=== PATIENT | female | born 1935 ===

== ENCOUNTER 2018-04-05 10:45 | Inpatient (IN) | payer MEDICAID, OTHER ==
--- NOTE | 2018-04-05 11:09 | ED PDOC ---
HPI: CCC, URI, Sore Throat Time Seen by Provider: 04/05/18 10:53 Chief Complaint (Nursing): Cough, Cold, Congestion History Per: Patient Onset/Duration Of Symptoms: Days (2) Current Symptoms Are (Timing): Still Present Location Of Pain: denies: Throat Sick Contacts (Context): None Associated Symptoms: Fever, Cough, Sputum Severity: Mild Additional Complaint(s): Cough productive white sputum x 2 days. Assoc with fever. Denies chest pain or SOB Past Medical History Vital Signs: Last Vital Signs Temp 100.9 F H 04/05/18 11:03 Pulse 107 H 04/05/18 11:03 Resp BP 155/73 H 04/05/18 11:03 Pulse Ox 99 04/05/18 11:09 - Medical History PMH: No Chronic Diseases - Family History Family History: States: Unknown Family Hx - Allergies Allergies/Adverse Reactions: Allergies Allergy/AdvReac Type Severity Reaction Status Date / Time No Known Allergies Allergy Verified 04/05/18 11:02 Review of Systems ROS Statement: Except As Marked, All Systems Reviewed And Found Negative Constitutional: Positive for: Fever Cardiovascular: Negative for: Chest Pain Respiratory: Positive for: Cough, Sputum. Negative for: Shortness of Breath Physical Exam - Reviewed Nursing Documentation Reviewed: Yes Vital Signs Reviewed: Yes - Physical Exam Appears: Positive for: Non-toxic, No Acute Distress Head Exam: Positive for: ATRAUMATIC, NORMAL INSPECTION, NORMOCEPHALIC Skin: Positive for: Normal Color, Warm, DRY Eye Exam: Positive for: EOMI, Normal appearance, PERRL ENT: Positive for: Normal ENT Inspection Neck: Positive for: Normal, Painless ROM Cardiovascular/Chest: Positive for: Regular Rate, Rhythm Respiratory: Positive for: Rhonchi. Negative for: Wheezing, Respiratory Distress Gastrointestinal/Abdominal: Positive for: Normal Exam, Soft Back: Positive for: Normal Inspection Extremity: Positive for: Normal ROM Neurologic/Psych: Positive for: Alert, Oriented - ECG O2 Sat by Pulse Oximetry: 99 Disposition - Clinical Impression Clinical Impression: Pneumonia, Sepsis - Patient ED Disposition Is Patient to be Admitted: Yes - Disposition Disposition Time: 11:50 Condition: FAIR Forms: [email or web address] ([place]oz[place]ican) - Pt Status Changed To: Hospital Disposition Of: Inpatient - Admit Certification Admit to Inpatient:: After my assessment, the patient will require hospitalization for at least two midnights. This is because of the severity of symptoms shown, intensity of services needed, and/or the medical risk in this patient being treated as an outpatient. - POA Present On Arrival: None
[2018-04-05] MEDS ORDERED: Piperacillin/Tazobact 3.375 GM in Sodium Chloride 0.9% 100 ML IVPB STA (11:48)
[2018-04-05] MEDS ORDERED: Vancomycin 1 g Inj ONE (11:52)
[2018-04-05] MEDS ORDERED: Piperacillin/Tazobact 3.375 gm Inj IVPB ONE (11:52)
--- NOTE | 2018-04-05 11:59 | RAD ---
Date of service: 04/05/2018 HISTORY: Cough COMPARISON: No prior. TECHNIQUE: Chest PA and lateral FINDINGS: LUNGS: Left lower lobe infiltrate suspicious for pneumonia. The finding is in the basilar segment retrocardiac area left lower lobe. Increased interstitial markings posterior segment right upper lobe. Etiology, significance is unknown. No comparison studies. PLEURA: No significant pleural effusion identified. No pneumothorax apparent. CARDIOVASCULAR: Normal. OSSEOUS STRUCTURES: No significant abnormalities. VISUALIZED UPPER ABDOMEN: Normal. OTHER FINDINGS: None. IMPRESSION: Left lower lobe infiltrate suspicious for acute pneumonia. Increased markings primarily interstitial right upper lobe. These are peripheral and pleural-based.
[2018-04-05 12:01] LABS: VENOUS BLOOD GAS PCO2 54 mmHg (40-60); VENOUS BLOOD GAS PO2 21 mm/Hg (30-55)
[2018-04-05 12:28] LABS: BASO # 0.1 K/uL (0.0-0.2); BASO % 0.4 % (0.0-2.0); EOS # 0.1 K/uL (0.0-0.7); EOS % 0.6 % (0.0-4.0); HEMOGLOBIN 11.2 g/dL (12.0-16.0); LYMPH # 0.9 K/uL (1.0-4.3); LYMPH % 5.6 % (20.0-40.0); MEAN CELL VOLUME 89.2 fl (81.0-99.0); MEAN CORPUSCULAR HEMOGLOBIN 29.6 pg (27.0-31.0); MEAN CORPUSCULAR HGB CONC 33.2 g/dL (33.0-37.0); MEAN PLATELET VOLUME 7.2 fl (7.2-11.7); MONO # 1.1 K/uL (0.0-0.8); MONO % 6.5 % (0.0-10.0); NEUT # 14.7 K/uL (1.8-7.0); NEUT % 86.9 % (50.0-75.0); PLATELET COUNT 525 K/uL (130-400); RBC 3.77 Mil/uL (3.80-5.20); WHITE BLOOD COUNT 16.9 K/uL (4.8-10.8)
[2018-04-05 12:39] LABS: ALBUMIN 3.8 g/dL (3.5-5.0); ALT/SGPT 80 U/L (9-52); AST/SGOT 65 U/L (14-36); BLOOD UREA NITROGEN 9 mg/dl (7-17); GFR NON-AFRICAN AMERICAN > 60
[2018-04-05] MEDS ORDERED: Albuterol-Ipratrop 3 mg / 0.5 (3 ml) UD IH STA (13:19)
[2018-04-05] MEDS ORDERED: Albuterol-Ipratrop 3 mg / 0.5 (3 ml) UD ONE (13:26)
[2018-04-05 14:07] LABS: HYPOCHROMIC SLIGHT; LYMPHOCYTE 8 % (20-50); MONOCYTE 7 % (0-10); NEUTROPHIL 85 % (42-75); PLATELET ESTIMATE INCREASED (NORMAL); TOTAL CELLS COUNTED 100
[2018-04-05 14:08] LABS: TOXIC GRANULATION PRESENT
[2018-04-05] MEDS ORDERED: Sodium Chloride 3% for Inhalation 4 ML VIAL.NEB IH PRN (14:20)
[2018-04-05] MEDS ORDERED: Albuterol-Ipratrop 3 mg / 0.5 (3 ml) UD INH PRN (14:34)
[2018-04-05] MEDS: Piperacillin/Tazobact 3.375 GM in Sodium Chloride 0.9% 100 ML IVPB SCH (16:21)
--- NOTE | 2018-04-05 22:31 | CARD ---
APPROVED REPORT Date of service: 04/05/2018 <Conclusion> Sinus rhythm Normal ECG
[2018-04-06] MEDS: Piperacillin/Tazobact 3.375 GM in Sodium Chloride 0.9% 100 ML IVPB SCH ×3 (00:18→17:33)
[2018-04-06 06:38] LABS: HEMOGLOBIN 9.9 g/dL (12.0-16.0); MEAN CELL VOLUME 88.5 fl (81.0-99.0); MEAN CORPUSCULAR HEMOGLOBIN 29.9 pg (27.0-31.0); MEAN CORPUSCULAR HGB CONC 33.8 g/dL (33.0-37.0); RBC 3.32 Mil/uL (3.80-5.20); RED CELL DISTRIBUTION WIDTH 13.1 % (11.5-14.5)
[2018-04-06 07:34] LABS: ALB/GLOB RATIO 0.9 (1.0-2.1); ALT/SGPT 67 U/L (9-52); AST/SGOT 47 U/L (14-36); BLOOD UREA NITROGEN 8 mg/dl (7-17); CALCIUM 8.4 mg/dL (8.4-10.2); GFR NON-AFRICAN AMERICAN > 60
[2018-04-06] MEDS ORDERED: Pneumococcal 23-Valent Vaccine IM ONE (09:00)
--- NOTE | 2018-04-06 15:06 | CP.PCM.HP ---
History of Present Illness - History of Present Illness History of Present Illness: Pt is an 83 y/o homeless female with no past medical hx who presented to [facility] ED with complaints of a two day history of productive cough and fevers. Denied any CP, SOB, URI, sick contacts, recent travel, n/v/d, or dysuria. PMD: none 12 point ROS negative PMHX: Denies PSurgHX: Denies Medication: None Social: Homeless, migrated from [place] 20 year ago. Does not have family here. Denies smoking, alcohol, or drug use. ER Course/Interventions: -Cxray + Left Lower lobe infiltrates -Sepsis: Febrile, Tachycardic, Leukocytosis 16.9 -S/P Vancomycin and Zosyn in ED Admitted for Pneumonia Present on Admission - Present on Admission Any Indicators Present on Admission: No History of DVT/PE: No History of Uncontrolled Diabetes: No Urinary Catheter: No Decubitus Ulcer Present: No Review of Systems - Constitutional Constitutional: absent: Chills, Weakness - Cardiovascular Cardiovascular: absent: Chest Pain - Respiratory Respiratory: absent: Dyspnea Past Patient History - Past Medical History & Family History Past Medical History?: No - Past Social History Smoking Status: Never Smoked - CARDIAC Hx Cardiac Disorders: No - PULMONARY Hx Respiratory Disorders: No - NEUROLOGICAL Hx Neurological Disorder: No - HEENT Hx HEENT Problems: No - RENAL Hx Chronic Kidney Disease: No - ENDOCRINE/METABOLIC Hx Endocrine Disorders: No - HEMATOLOGICAL/ONCOLOGICAL Hx Blood Disorders: No - INTEGUMENTARY Hx Dermatological Problems: No - MUSCULOSKELETAL/RHEUMATOLOGICAL Hx Falls: No - GENITOURINARY/GYNECOLOGICAL Hx Genitourinary Disorders: No - PSYCHIATRIC Hx Substance Use: No - SURGICAL HISTORY Hx Surgeries: No - ANESTHESIA Hx Anesthesia: No Meds Allergies/Adverse Reactions: Allergies Allergy/AdvReac Type Severity Reaction Status Date / Time No Known Allergies Allergy Verified 04/05/18 11:02 Physical Exam - Constitutional Appears: Non-toxic - Head Exam Head Exam: ATRAUMATIC, NORMAL INSPECTION - Eye Exam Eye Exam: Normal appearance, PERRL - ENT Exam ENT Exam: Mucous Membranes Moist - Neck Exam Neck exam: Positive for: Full Rom. Negative for: Lymphadenopathy - Respiratory Exam Respiratory Exam: Rales (Left lower and mid lobe rales). absent: Accessory Muscle Use, Chest Wall Tenderness, Rhonchi, Wheezes, Stridor - Cardiovascular Exam Cardiovascular Exam: REGULAR RHYTHM, +S1, +S2. absent: Systolic Murmur - GI/Abdominal Exam GI & Abdominal Exam: Normal Bowel Sounds, Soft. absent: Tenderness - Neurological Exam Neurological exam: Alert, Oriented x3 - Psychiatric Exam Psychiatric exam: Normal Affect - Skin Skin Exam: Normal Color Results - Vital Signs Recent Vital Signs: Last Vital Signs Temp 98.6 F 04/06/18 09:08 Pulse 85 04/06/18 09:08 Resp 20 04/06/18 09:08 BP 146/72 04/06/18 09:08 Pulse Ox 94 L 04/06/18 09:08 - Labs Result Diagrams: 04/06/18 06:00 04/06/18 06:00 Labs: Laboratory Results - last 24 hr 04/06/18 04/06/18 06:00 06:00 WBC 8.0 D RBC 3.32 L Hgb 9.9 L Hct 29.3 L MCV 88.5 MCH 29.9 MCHC 33.8 RDW 13.1 Plt Count 498 H Sodium 136 Potassium 3.8 Chloride 99 Carbon Dioxide 31 H Anion Gap 10 BUN 8 Creatinine 0.7 Est GFR ( Amer) > 60 Est GFR (Non-Af Amer) > 60 Random Glucose 114 H Calcium 8.4 Phosphorus 3.4 Magnesium 2.2 Total Bilirubin 0.2 AST 47 H D ALT 67 H Alkaline Phosphatase 83 Total Protein 6.2 L Albumin 3.0 L D Globulin 3.2 Albumin/Globulin Ratio 0.9 L Assessment & Plan (1) Pneumonia Status: Acute (2) Sepsis Status: Resolved - Assessment and Plan (Free Text) Assessment: Pt is an 83 y/o homeless female w/ no past medical hx admitted for Sepsis secondary to Pneumonia. #Sepsis: Resolved. Afebrile, No leukocytosis. Discontinue Tele. #Pneumonia, Acute, Improving, C/w Vanco & Zosyn. Duonebs q6. f/u Sputum and Blood Cx. #Homeless, Social Work referral Discussed case with Dr. Laura Cooper, PGY2
[2018-04-07] MEDS: Piperacillin/Tazobact 3.375 GM in Sodium Chloride 0.9% 100 ML IVPB SCH ×3 (00:07→16:17)
[2018-04-07 09:09] LABS: HEMOGLOBIN 11.3 g/dL (12.0-16.0); MEAN CORPUSCULAR HEMOGLOBIN 29.9 pg (27.0-31.0); MEAN CORPUSCULAR HGB CONC 33.9 g/dL (33.0-37.0); RBC 3.78 Mil/uL (3.80-5.20); WHITE BLOOD COUNT 7.2 K/uL (4.8-10.8)
--- NOTE | 2018-04-07 10:25 | RAD ---
HISTORY: Follow-up for pneumonia COMPARISON: 04/05/2018. TECHNIQUE: Chest PA and lateral FINDINGS: LINES AND TUBES: None. LUNG AND PLEURA: The lungs are well inflated. There are fibrotic changes in the right upper lobe. There is redemonstration of left lower lobe airspace disease. No pleural effusion or pneumothorax. HEART AND MEDIASTINUM: The heart is not enlarged. The hilar and mediastinal contours are within normal limits. SKELETAL STRUCTURES: The bony structures are within normal limits for the patient's age. VISUALIZED UPPER ABDOMEN: Normal. OTHER FINDINGS: None. IMPRESSION: Little interval change in left lower lobe pneumonia. Follow-up to resolution is advised.
[2018-04-07] MEDS: Enoxaparin 40 mg Syringe SC SCH (12:42)
[2018-04-07] MEDS: guaiFENesin DM 100 mg-10 mg/5 ml UD PO PRN ×2 (12:42→23:39)
[2018-04-07] MEDS: Albuterol-Ipratrop 3 mg / 0.5 (3 ml) UD INH SCH ×2 (13:03→19:23)
--- NOTE | 2018-04-07 15:25 | CP.PCM.PN ---
Subjective - Date & Time of Evaluation Date of Evaluation: 04/07/18 Time of Evaluation: 08:00 - Subjective Subjective: No acute overnight events. Still has productive cough but improved since yesterday. Denies SOB, CP, fever, chills. Objective - Vital Signs/Intake and Output Vital Signs (last 24 hours): Temp Pulse Resp BP Pulse Ox 98 F 75 18 146/72 95 04/07/18 08:40 04/07/18 13:03 04/07/18 08:40 04/07/18 08:40 04/07/18 08:40 - Medications Medications: Current Medications Albuterol/Ipratropium (Duoneb 3 Mg/0.5 Mg (3 Ml) Ud) 3 ml INH RQ6 [facility] Last Admin: 04/07/18 13:03 Dose: 3 ml Enoxaparin Sodium (Lovenox) 40 mg SC DAILY [facility] PRN Reason: Protocol Last Admin: 04/07/18 12:42 Dose: 40 mg Guaifenesin/Dextromethorphan (Robitussin Dm) 5 ml PO Q4 PRN PRN Reason: Cough Last Admin: 04/07/18 12:42 Dose: 5 ml Hydrocortisone (Cortizone 1% Cream) 1 applic TOP BID [facility] Last Admin: 04/07/18 11:01 Dose: 1 applic Vancomycin HCl 1 gm/ Sodium (Chloride) 250 mls @ 166.667 mls/hr IVPB Q12 [facility] PRN Reason: Protocol Last Admin: 04/07/18 10:58 Dose: 166.667 mls/hr Piperacillin Sod/Tazobactam (Sod 3.375 gm/ Sodium Chloride) 100 mls @ 100 mls/ hr IVPB Q8 [facility] PRN Reason: Protocol Last Admin: 04/07/18 09:27 Dose: 100 mls/hr - Labs Labs: 04/07/18 09:01 04/06/18 06:00 - Constitutional Appears: Well, Non-toxic - Head Exam Head Exam: ATRAUMATIC - Eye Exam Eye Exam: Normal appearance - ENT Exam ENT Exam: Mucous Membranes Moist - Neck Exam Neck Exam: Full ROM - Respiratory Exam Respiratory Exam: Rales (Left lower and mid lobe). absent: Accessory Muscle Use , Wheezes - Cardiovascular Exam Cardiovascular Exam: REGULAR RHYTHM, +S1, +S2. absent: Murmur - GI/Abdominal Exam GI & Abdominal Exam: Soft, Normal Bowel Sounds. absent: Tenderness - Extremities Exam Extremities Exam: absent: Pedal Edema - Neurological Exam Neurological Exam: Alert, Normal Gait - Psychiatric Exam Psychiatric exam: Normal Affect, Normal Mood - Skin Skin Exam: Normal Color Assessment and Plan (1) Pneumonia Status: Acute (2) Sepsis Status: Resolved - Assessment and Plan (Free Text) Assessment: Pt is an 83 y/o homeless female with no past medical hx who presented to [facility] ED with complaints of a two day history of productive cough and fevers and admitted for pneumonia. Improving respiratory status. Will repeat Cxray tomorrow am. Started Tessalon Perles for cough. C/W current management. Discussed case with Dr. Laura Cooper, PGY1
[2018-04-08] MEDS: Piperacillin/Tazobact 3.375 GM in Sodium Chloride 0.9% 100 ML IVPB SCH ×2 (01:00→08:52)
[2018-04-08] MEDS: Albuterol-Ipratrop 3 mg / 0.5 (3 ml) UD INH SCH ×4 (01:05→19:12)
[2018-04-08] MEDS: guaiFENesin DM 100 mg-10 mg/5 ml UD PO PRN ×3 (08:50→17:27)
[2018-04-08] MEDS: Enoxaparin 40 mg Syringe SC SCH (08:53)
--- NOTE | 2018-04-08 13:18 | CP.PCM.CON ---
History of Present Illness - History of Present Illness History of Present Illness: 83 year old female with no past medical history, presenting with progressive fatigue and cough, found to have pneumonia, currently on antibiotics, found to have thrombocytosis. The patient denies blood problems in the past but does not see a doctor regularly. Past medical history: None Past surgical history: None Family history: Denies hematologic and oncologic problems Social history: Denies tobacco, alcohol, and illicit drug use. Allergies: NKA Review of systems: All remaining review of systems including HEENT, cardiovascular, respiratory, gastrointestinal, genitourinary, musculoskeletal, dermatologic, neurologic, and psychiatric are negative unless mentioned in the HPI. Past Patient History - Past Medical History & Family History Past Medical History?: No - Past Social History Smoking Status: Never Smoked - CARDIAC Hx Cardiac Disorders: No - PULMONARY Hx Respiratory Disorders: No - NEUROLOGICAL Hx Neurological Disorder: No - HEENT Hx HEENT Problems: No - RENAL Hx Chronic Kidney Disease: No - ENDOCRINE/METABOLIC Hx Endocrine Disorders: No - HEMATOLOGICAL/ONCOLOGICAL Hx Blood Disorders: No - INTEGUMENTARY Hx Dermatological Problems: No - MUSCULOSKELETAL/RHEUMATOLOGICAL Hx Falls: No - GENITOURINARY/GYNECOLOGICAL Hx Genitourinary Disorders: No - PSYCHIATRIC Hx Substance Use: No - SURGICAL HISTORY Hx Surgeries: No - ANESTHESIA Hx Anesthesia: No Meds Allergies/Adverse Reactions: Allergies Allergy/AdvReac Type Severity Reaction Status Date / Time No Known Allergies Allergy Verified 04/05/18 11:02 - Medications Medications: Current Medications Albuterol/Ipratropium (Duoneb 3 Mg/0.5 Mg (3 Ml) Ud) 3 ml INH RQ6 [facility] Last Admin: 04/08/18 07:43 Dose: 3 ml Enoxaparin Sodium (Lovenox) 40 mg SC DAILY [facility] PRN Reason: Protocol Last Admin: 04/08/18 08:53 Dose: 40 mg Guaifenesin/Dextromethorphan (Robitussin Dm) 5 ml PO Q4 PRN PRN Reason: Cough Last Admin: 04/08/18 08:50 Dose: 5 ml Hydrocortisone (Cortizone 1% Cream) 1 applic TOP BID [facility] Last Admin: 04/07/18 16:18 Dose: 1 applic Levofloxacin (Levaquin) 750 mg PO DAILY [facility] PRN Reason: Protocol Physical Exam - Head Exam Head Exam: ATRAUMATIC - Eye Exam Eye Exam: Normal appearance - ENT Exam ENT Exam: Mucous Membranes Dry - Respiratory Exam Respiratory Exam: NORMAL BREATHING PATTERN - Cardiovascular Exam Cardiovascular Exam: +S1, +S2 - GI/Abdominal Exam GI & Abdominal Exam: Normal Bowel Sounds - Extremities Exam Extremities exam: Positive for: normal inspection - Psychiatric Exam Psychiatric exam: Normal Affect, Normal Mood - Skin Skin Exam: Warm Results - Vital Signs Recent Vital Signs: Last Vital Signs Temp 97.6 F 04/08/18 08:00 Pulse 84 04/08/18 08:00 Resp 20 04/08/18 08:00 BP 133/75 04/08/18 08:00 Pulse Ox 97 04/08/18 08:00 - Labs Result Diagrams: 04/07/18 09:01 04/06/18 06:00 Assessment & Plan (1) Thrombocytosis Assessment and Plan: likely reactive to pneumonia outpatient repeat CBC once clear of infection Status: Acute (2) Anemia Assessment and Plan: will check retic count, b12, folate, ferritin to further characterize Thank you for this interesting consult. Status: Acute
--- NOTE | 2018-04-08 16:11 | CP.PCM.PN ---
Subjective - Date & Time of Evaluation Date of Evaluation: 04/08/18 Time of Evaluation: 08:00 - Subjective Subjective: No acute overnight events. Pt seen and examined with Dr. Gilbert. States breathing is better. Still complains of wet cough. Objective - Vital Signs/Intake and Output Vital Signs (last 24 hours): Temp Pulse Resp BP Pulse Ox 97.6 F 84 20 133/75 97 04/08/18 08:00 04/08/18 08:00 04/08/18 08:00 04/08/18 08:00 04/08/18 08:00 - Medications Medications: Current Medications Albuterol/Ipratropium (Duoneb 3 Mg/0.5 Mg (3 Ml) Ud) 3 ml INH RQ6 [facility] Last Admin: 04/08/18 14:19 Dose: 3 ml Enoxaparin Sodium (Lovenox) 40 mg SC DAILY [facility] PRN Reason: Protocol Last Admin: 04/08/18 08:53 Dose: 40 mg Guaifenesin/Dextromethorphan (Robitussin Dm) 5 ml PO Q4 PRN PRN Reason: Cough Last Admin: 04/08/18 14:00 Dose: 5 ml Hydrocortisone (Cortizone 1% Cream) 1 applic TOP BID [facility] Last Admin: 04/08/18 13:40 Dose: 1 applic Levofloxacin (Levaquin) 750 mg PO DAILY [facility] PRN Reason: Protocol - Labs Labs: 04/07/18 09:01 04/06/18 06:00 - Constitutional Appears: Well, No Acute Distress - Head Exam Head Exam: NORMAL INSPECTION - Eye Exam Eye Exam: Normal appearance - ENT Exam ENT Exam: Mucous Membranes Moist - Respiratory Exam Respiratory Exam: Rales (Mild left mid lobe, imrpoved), Rhonchi, NORMAL BREATHING PATTERN - Cardiovascular Exam Cardiovascular Exam: REGULAR RHYTHM - GI/Abdominal Exam GI & Abdominal Exam: Soft. absent: Tenderness - Extremities Exam Extremities Exam: absent: Pedal Edema - Neurological Exam Neurological Exam: Alert, Oriented x3 - Psychiatric Exam Psychiatric exam: Normal Affect - Skin Skin Exam: Normal Color Assessment and Plan (1) Pneumonia Status: Acute (2) Sepsis Status: Resolved - Assessment and Plan (Free Text) Assessment: Pt is an 83 y/o homeless female with no past medical hx who presented to [facility] ED with complaints of a two day history of productive cough and fevers and admitted for pneumonia. -Improving respiratory status but no improvement in chest xray -Discontinue Vancomycin and Zosyn -Started Levoquin 750mg po -C/W current management. +Mucolytics -Repeat Cxray in the am -Hematology consulted for thrombocystosis, Dr. Bacon Discussed case with Dr. Vladimir Cooper, PGY2
[2018-04-08] MEDS: levoFLOXacin 750 MG TAB PO SCH (18:05)
[2018-04-09] MEDS: Albuterol-Ipratrop 3 mg / 0.5 (3 ml) UD INH SCH ×3 (02:06→13:20)
[2018-04-09] MEDS: guaiFENesin DM 100 mg-10 mg/5 ml UD PO PRN ×3 (09:12→16:15)
[2018-04-09] MEDS: Enoxaparin 40 mg Syringe SC SCH (09:12)
[2018-04-09] MEDS: levoFLOXacin 750 MG TAB PO SCH (09:13)
--- NOTE | 2018-04-09 11:41 | RAD ---
Date of service: 04/09/2018 HISTORY: pneumonia COMPARISON: 04/07/2018. FINDINGS: LUNGS: Interval improvement with respect to left lower lobe infiltrate. Stable right apical findings. PLEURA: No significant pleural effusion identified, no pneumothorax apparent. CARDIOVASCULAR: Normal. OSSEOUS STRUCTURES: No significant abnormalities. VISUALIZED UPPER ABDOMEN: Normal. OTHER FINDINGS: None. IMPRESSION: Improvement in left lower lobe infiltrate without complete resolution. Stable changes right apex likely chronic.
[2018-04-09 13:08] LABS: BASO # 0.1 K/uL (0.0-0.2); BASO % 0.9 % (0.0-2.0); HEMOGLOBIN 10.6 g/dL (12.0-16.0); LYMPH # 0.9 K/uL (1.0-4.3); LYMPH % 13.9 % (20.0-40.0); MEAN CELL VOLUME 89.2 fl (81.0-99.0); MEAN CORPUSCULAR HEMOGLOBIN 29.5 pg (27.0-31.0); MEAN PLATELET VOLUME 6.3 fl (7.2-11.7); MONO # 0.7 K/uL (0.0-0.8); MONO % 11.3 % (0.0-10.0); NEUT # 4.8 K/uL (1.8-7.0); NEUT % 73.9 % (50.0-75.0); NRBC % 0.1 % (0.0-0.0); RBC 3.61 Mil/uL (3.80-5.20); RED CELL DISTRIBUTION WIDTH 13.7 % (11.5-14.5); WHITE BLOOD COUNT 6.5 K/uL (4.8-10.8)
[2018-04-09 13:46] LABS: BLOOD UREA NITROGEN 14 mg/dl (7-17); GFR NON-AFRICAN AMERICAN > 60
[2018-04-09 16:12] VITALS: BP 126/66; PULSE 100; RESP 20; TEMP 97.9; O2SAT 97
--- NOTE | 2018-04-09 17:27 | CP.PCM.DIS ---
Provider - Provider Date of Admission: 04/05/18 11:51 Attending physician: Junior Sanchez MD Time Spent in preparation of Discharge (in minutes): 35 Diagnosis - Discharge Diagnosis (1) Pneumonia Status: Resolved (2) Sepsis Status: Resolved Hospital Course - Lab Results Lab Results: Micro Results 04/05/18 12:28 Blood Blood Culture - Preliminary NO GROWTH AFTER 4 DAYS 04/05/18 12:19 Blood Blood Culture - Preliminary NO GROWTH AFTER 4 DAYS 04/05/18 00:15 Sputum Gram Stain - Final 04/05/18 00:15 Sputum Sputum Culture - Final NORMAL ORAL MARTY Most Recent Lab Values WBC 6.5 K/uL (4.8-10.8) 04/09/18 13:00 RBC 3.61 Mil/uL (3.80-5.20) L 04/09/18 13:00 Hgb 10.6 g/dL (12.0-16.0) L 04/09/18 13:00 Hct 32.2 % (34.0-47.0) L 04/09/18 13:00 MCV 89.2 fl (81.0-99.0) 04/09/18 13:00 MCH 29.5 pg (27.0-31.0) 04/09/18 13:00 MCHC 33.0 g/dL (33.0-37.0) 04/09/18 13:00 RDW 13.7 % (11.5-14.5) 04/09/18 13:00 Plt Count 572 K/uL (130-400) H 04/09/18 13:00 MPV 6.3 fl (7.2-11.7) L 04/09/18 13:00 Neut % (Auto) 73.9 % (50.0-75.0) 04/09/18 13:00 Lymph % (Auto) 13.9 % (20.0-40.0) L 04/09/18 13:00 [place] % (Auto) 11.3 % (0.0-10.0) H 04/09/18 13:00 Eos % (Auto) 0.0 % (0.0-4.0) 04/09/18 13:00 Baso % (Auto) 0.9 % (0.0-2.0) 04/09/18 13:00 Neut # (Auto) 4.8 K/uL (1.8-7.0) 04/09/18 13:00 Lymph # (Auto) 0.9 K/uL (1.0-4.3) L 04/09/18 13:00 [place] # (Auto) 0.7 K/uL (0.0-0.8) 04/09/18 13:00 Eos # (Auto) 0.0 K/uL (0.0-0.7) 04/09/18 13:00 Baso # (Auto) 0.1 K/uL (0.0-0.2) 04/09/18 13:00 Neutrophils % (Manual) 85 % (42-75) H 04/05/18 12:19 Lymphocytes % (Manual) 8 % (20-50) L 04/05/18 12:19 Monocytes % (Manual) 7 % (0-10) 04/05/18 12:19 Toxic Granulation Present 04/05/18 12:19 Platelet Estimate Increased (NORMAL) H 04/05/18 12:19 Hypochromasia (manual) Slight 04/05/18 12:19 Retic Count 1.2 % (0.5-1.5) 04/09/18 13:00 pO2 21 mm/Hg (30-55) L 04/05/18 11:57 VBG pH 7.40 (7.32-7.43) 04/05/18 11:57 VBG pCO2 54 mmHg (40-60) 04/05/18 11:57 VBG HCO3 28.7 mmol/L 04/05/18 11:57 VBG Total CO2 35.1 mmol/L (22-28) H 04/05/18 11:57 VBG O2 Sat (Calc) 33.5 % (40-65) L 04/05/18 11:57 VBG Base Excess 7.0 mmol/L (0.0-2.0) H 04/05/18 11:57 VBG Potassium 4.3 mmol/L (3.6-5.2) 04/05/18 11:57 Sodium 134.0 mmol/L (132-148) 04/05/18 11:57 Chloride 98.0 mmol/L (98-107) 04/05/18 11:57 Glucose 121 mg/dL (65-105) H 04/05/18 11:57 Lactate 1.2 mmol/L (0.7-2.1) 04/05/18 11:57 FiO2 21.0 % 04/05/18 11:57 Sodium 134 mmol/l (132-148) 04/09/18 13:00 Potassium 4.5 MMOL/L (3.6-5.0) 04/09/18 13:00 Chloride 97 mmol/L (98-107) L 04/09/18 13:00 Carbon Dioxide 29 mmol/L (22-30) 04/09/18 13:00 Anion Gap 13 (10-20) 04/09/18 13:00 BUN 14 mg/dl (7-17) 04/09/18 13:00 Creatinine 0.7 mg/dl (0.7-1.2) 04/09/18 13:00 Est GFR ( Amer) > 60 04/09/18 13:00 Est GFR (Non-Af Amer) > 60 04/09/18 13:00 Random Glucose 101 mg/dL (65-105) 04/09/18 13:00 Calcium 9.0 mg/dL (8.4-10.2) 04/09/18 13:00 Phosphorus 3.4 mg/dl (2.5-4.5) 04/06/18 06:00 Magnesium 2.2 MG/DL (1.6-2.3) 04/06/18 06:00 Ferritin 180.0 ng/Ml (11.1-264.0) 04/09/18 13:00 Total Bilirubin 0.2 mg/dl (0.2-1.3) 04/06/18 06:00 AST 47 U/L (14-36) H D 04/06/18 06:00 ALT 67 U/L (9-52) H 04/06/18 06:00 Alkaline Phosphatase 83 U/L (38-126) 04/06/18 06:00 Total Protein 6.2 G/DL (6.3-8.2) L 04/06/18 06:00 Albumin 3.0 g/dL (3.5-5.0) L D 04/06/18 06:00 Globulin 3.2 gm/dL (2.2-3.9) 04/06/18 06:00 Albumin/Globulin Ratio 0.9 (1.0-2.1) L 04/06/18 06:00 Vitamin B12 691 pg/mL (239-931) 04/09/18 13:00 Venous Blood Potassium 4.3 mmol/L (3.6-5.2) 04/05/18 11:57 - Hospital Course Hospital Course: Pt is an 83 y/o homeless female with no past medical hx who presented to [facility] ED with complaints of a two day history of productive cough and fevers and admitted for community acquired pneumonia. Pt was treated with Vancomycin and Zosyn for 3 days then treated with Levofloxacin for 2 days. Pt's symptoms improved significantly and she was stable for discharge. During her stay, she was noted to have thrombocytosis and was evaluated by Phone Operator, Dr. Bacon, who stated it was likely reaction to her acute illness. Discharge Medications: Levofloxacin 5 days (total 7 days) Discussed case with Dr. Vladimir Cooper, PGY2 Discharge Exam - Head Exam Head Exam: ATRAUMATIC, NORMAL INSPECTION - Eye Exam Eye Exam: Normal appearance - ENT Exam ENT Exam: Mucous Membranes Moist - Neck Exam Neck exam: Full Rom - Respiratory Exam Respiratory Exam: Clear to PA & Lateral, NORMAL BREATHING PATTERN. absent: Rales, Wheezes - Cardiovascular Exam Cardiovascular Exam: REGULAR RHYTHM, +S1, +S2. absent: Systolic Murmur - GI/Abdominal Exam GI & Abdominal Exam: Normal Bowel Sounds - Extremities Exam Extremities exam: normal inspection - Neurological Exam Neurological exam: Oriented x3 - Psychiatric Exam Psychiatric exam: Normal Affect, Normal Mood - Skin Skin Exam: Normal Color Discharge Plan - Discharge Medications Prescriptions: levoFLOXacin [Levaquin] 750 mg PO DAILY #7 tab - Follow Up Plan Condition: FAIR Disposition: HOME/ ROUTINE Instructions: Pneumonia, Adult (DC) Additional Instructions: appointment for thursdayapr 14 at 11am at [facility] in [place], please arrive 1/2 hour earlier to be registered. Referrals: [facility] [place] [Outside] Junior Sanchez MD [Staff Provider] -
--- NOTE | 2018-04-10 17:12 | CP.PCM.PN ---
Subjective - Date & Time of Evaluation Date of Evaluation: 04/09/18 Time of Evaluation: 10:00 - Subjective Subjective: Feeling better. Objective - Vital Signs/Intake and Output Vital Signs (last 24 hours): Temp Pulse Resp BP Pulse Ox 97.9 F 100 H 20 126/66 97 04/09/18 16:12 04/09/18 16:12 04/09/18 16:12 04/09/18 16:12 04/09/18 16:12 - Labs Labs: 04/09/18 13:00 04/09/18 13:00 - Head Exam Head Exam: ATRAUMATIC - Eye Exam Eye Exam: Normal appearance - ENT Exam ENT Exam: Mucous Membranes Dry - Respiratory Exam Respiratory Exam: NORMAL BREATHING PATTERN - Cardiovascular Exam Cardiovascular Exam: +S1, +S2 - GI/Abdominal Exam GI & Abdominal Exam: Normal Bowel Sounds Assessment and Plan (1) Thrombocytosis Assessment & Plan: likely reactive to infection repeat CBC once clear of infection Status: Acute (2) Anemia Assessment & Plan: anemia of chronic disease Status: Acute
== END 2018-04-09 17:58 | disposition home or self-care (01) | DRG 871 ==
LOC: H.ER 10:45 → H.ERHOLD 11:51 → H.TEL 13:51 → H.MEDSURG1 04-06 23:00
PROVIDERS: ADMIT Family Medicine; ATTEND Family Medicine
DX: A41.9 Sepsis, unspecified organism (principal); J18.9 Pneumonia, unspecified organism; Z59.0 Homelessness; D63.8 Anemia in other chronic diseases classified elsewhere; D47.3 Essential (hemorrhagic) thrombocythemia

== ENCOUNTER 2018-06-10 15:19 | Observation (INO) | payer OTHER, SELFPAY ==
--- NOTE | 2018-06-10 15:54 | ED PDOC ---
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 Awoke this morning with pain, swelling and redness to R side of face tracking back to ear and neck. Denies fever, c/o headache, mild neck pain, facial pain and pain around R eye. Denies LOC, focal weakness, vomiting or back pain. Takes no medications. PMD: denies (per records has seen [facility]) Past Medical History Reviewed: Historical Data, Nursing Documentation, Vital Signs Vital Signs: Last Vital Signs Temp 99.2 F 06/10/18 15:22 Pulse 117 H 06/10/18 15:22 Resp 18 06/10/18 15:22 BP 154/65 H 06/10/18 15:22 Pulse Ox 99 06/10/18 15:22 - Medical History PMH: No Chronic Diseases Denies: Chronic Kidney Disease - Surgical History Surgical History: Appendectomy - Family History Family History: States: Unknown Family Hx - Home Medications Home Medications: Ambulatory Orders Medication Instructions Recorded levoFLOXacin [Levaquin] 750 mg PO DAILY #7 tab 04/09/18 - Allergies Allergies/Adverse Reactions: Allergies Allergy/AdvReac Type Severity Reaction Status Date / Time No Known Allergies Allergy Verified 06/10/18 15:21 - Laboratory Results Result Diagrams: 06/10/18 15:50 06/10/18 15:50 - ECG O2 Sat by Pulse Oximetry: 99 Medical Decision Making Medical Decision Making: workup for fall with erythema/swelling of face initiated r/o traumatic or infectious etiology. Pt states swelling and redness started this morning, after the fall. labs obtained revealing elev WBC approx 15 HR elevated >100, meets SIRS criteria Lactate obtained <2.0 CT brain/Facial/CSpine ordered and results reviewed, no fracture/bleed but +subcutaneous edema R face Zosyn initiated for likely facial cellulitis, meets sepsis but not severe sepsis criteria Admit obs med surg for IV Abx. Patient is elderly, lives in fdc but unclear if can gain access tonight, and high risk poor outcome with facial cellulitis, age, inability to obtain appropriate Abx with poor insight and homeless with temperature <35d F currently outside. Disposition - Disposition
[2018-06-10 16:19] LABS: BASO % 0.3 % (0.0-2.0); EOS % 0.1 % (0.0-4.0); HEMOGLOBIN 12.8 g/dL (12.0-16.0); LYMPH # 0.9 K/uL (1.0-4.3); LYMPH % 6.1 % (20.0-40.0); MEAN CELL VOLUME 90.7 fl (81.0-99.0); MEAN CORPUSCULAR HEMOGLOBIN 29.1 pg (27.0-31.0); MEAN CORPUSCULAR HGB CONC 32.1 g/dL (33.0-37.0); MEAN PLATELET VOLUME 8.1 fl (7.2-11.7); MONO # 0.9 K/uL (0.0-0.8); MONO % 6.3 % (0.0-10.0); NEUT # 12.7 K/uL (1.8-7.0); NEUT % 87.2 % (50.0-75.0); PLATELET COUNT 261 K/uL (130-400); RED CELL DISTRIBUTION WIDTH 14.4 % (11.5-14.5); WHITE BLOOD COUNT 14.5 K/uL (4.8-10.8)
[2018-06-10 16:39] LABS: ALB/GLOB RATIO 1.4 (1.0-2.1); ALBUMIN 4.6 g/dL (3.5-5.0); ALT/SGPT 39 U/L (9-52); AST/SGOT 29 U/L (14-36); BLOOD UREA NITROGEN 15 mg/dl (7-17); CALCIUM 9.4 mg/dL (8.4-10.2); GFR NON-AFRICAN AMERICAN > 60
[2018-06-10] MEDS ORDERED: Sodium Chloride 0.9% 1,000 ML IV STA (17:17)
--- NOTE | 2018-06-10 17:17 | CT ---
Date of service: 06/10/2018 PROCEDURE: CT HEAD WITHOUT CONTRAST. HISTORY: r/o ICH COMPARISON: None available. TECHNIQUE: Axial computed tomography images were obtained through the head/brain without intravenous contrast. Radiation dose: Total exam DLP = 751.98 mGy-cm. This CT exam was performed using one or more of the following dose reduction techniques: Automated exposure control, adjustment of the mA and/or kV according to patient size, and/or use of iterative reconstruction technique. FINDINGS: HEMORRHAGE: No intracranial hemorrhage. BRAIN: No mass effect or edema. No atrophy or chronic microvascular ischemic changes. VENTRICLES: Unremarkable. No hydrocephalus. CALVARIUM: Unremarkable. PARANASAL SINUSES: Unremarkable as visualized. No significant inflammatory changes. MASTOID AIR CELLS: Unremarkable as visualized. No inflammatory changes. OTHER FINDINGS: None. IMPRESSION: No acute intracranial findings
--- NOTE | 2018-06-10 17:19 | CT ---
Date of service: 06/10/2018 PROCEDURE: CT MAXILLOFACIAL BONES WITHOUT CONTRAST HISTORY: R facial swelling, fall COMPARISON: None available. TECHNIQUE: Contiguous axial CT images of the maxillofacial bones were obtained. Coronal and sagittal reformats were generated. Radiation dose: Total exam DLP = 1039.55 mGy-cm. This CT exam was performed using one or more of the following dose reduction techniques: Automated exposure control, adjustment of the mA and/or kV according to patient size, and/or use of iterative reconstruction technique. FINDINGS: NASAL BONES: Unremarkable. ORBITS: Unremarkable. PARANASAL SINUSES/ MASTOIDS: Clear. MAXILLA: Unremarkable. MANDIBLE/ TEMPOROMANDIBULAR JOINTS: Unremarkable. SKULL BASE: Unremarkable. TEMPORAL BONES: Middle ears and mastoid grossly unremarkable. OTHER FINDINGS: There is subcutaneous edema over the right side of the face. No associated fracture IMPRESSION: No evidence of fracture
--- NOTE | 2018-06-10 17:20 | CT ---
Date of service: 06/10/2018 PROCEDURE: CT Cervical Spine without contrast HISTORY: trauma r/o fx COMPARISON: None available. TECHNIQUE: Axial computed tomography images were obtained of the cervical spine without the use of intravenous contrast. Coronal and sagittal reformatted images were created and reviewed. Radiation dose: Total exam DLP = 274.18 mGy-cm. This CT exam was performed using one or more of the following dose reduction techniques: Automated exposure control, adjustment of the mA and/or kV according to patient size, and/or use of iterative reconstruction technique. FINDINGS: VERTEBRAE: No fracture. Normal alignment. No destructive bony lesion. DISCS/SPINAL CANAL/NEURAL FORAMINA: No significant central canal or neural foraminal stenosis. Discs heights are grossly preserved. PARASPINAL SOFT TISSUES: Unremarkable. OTHER FINDINGS: None. IMPRESSION: Unremarkable CT of the cervical spine.
[2018-06-10 17:54] LABS: VENOUS BLOOD GAS BASE EXCESS 3.8 mmol/L (0.0-2.0); VENOUS BLOOD GAS PCO2 56 mmHg (40-60); VENOUS BLOOD GAS PO2 13 mm/Hg (30-55); VENOUS BLOOD PH 7.35 (7.32-7.43)
[2018-06-10] MEDS ORDERED: Piperacillin/Tazobact 4.5 GM in Sodium Chloride 0.9% 100 ML IVPB STA (17:55)
--- NOTE | 2018-06-10 18:35 | CP.PCM.HP ---
<Belinda Dey - Last Filed: 06/10/18 19:20> History of Present Illness - History of Present Illness History of Present Illness: CC: pain in face HPI: 83 YO Female with no sig PMHx presents to [facility] ED for face pain. Pt states that last night she hot her face into a door, and had some pain in her face. She did not suffer any falls, or superficial cuts. This morning pt experienced significant pain in her face, and saw in the mirror that her face had redness and swelling all over the R cheeks. Denies fever, chills, night sweats, chest pain, dyspnea, palpitations, n/v/d/c. Of note, pt was recently admitted to the hospital for pneumonia in 03/2018. [place] used for translation [id number] PMD: none PMHX: Denies PSurgHX: appendectomy when pt was 16 yrs old SHx: lives in [facility], no family in the [place] (from [place]) denies ETOH, smoking and illicit drug use Medication: None Allergies: NKDA Present on Admission - Present on Admission Any Indicators Present on Admission: No Review of Systems - Constitutional Constitutional: absent: Chills, Fever, Headache - EENT Eyes: absent: Change in Vision, Pain Ears: absent: Ear Pain - Cardiovascular Cardiovascular: absent: Chest Pain, Dyspnea, Palpitations - Respiratory Respiratory: absent: Cough, Dyspnea - Gastrointestinal Gastrointestinal: absent: Abdominal Pain, Nausea, Vomiting - Neurological Neurological: absent: Confusion, Dizziness, Numbness Past Patient History - Past Medical History & Family History Past Medical History?: No - Past Social History Smoking Status: Never Smoked Alcohol: None Drugs: Denies - CARDIAC Hx Cardiac Disorders: No - PULMONARY Hx Respiratory Disorders: No - NEUROLOGICAL Hx Neurological Disorder: No - HEENT Hx HEENT Problems: No - RENAL Hx Chronic Kidney Disease: No - ENDOCRINE/METABOLIC Hx Endocrine Disorders: No - HEMATOLOGICAL/ONCOLOGICAL Hx Blood Disorders: No - INTEGUMENTARY Hx Dermatological Problems: No - MUSCULOSKELETAL/RHEUMATOLOGICAL Hx Falls: No - GENITOURINARY/GYNECOLOGICAL Hx Genitourinary Disorders: No - PSYCHIATRIC Hx Psychophysiologic Disorder: No Hx Substance Use: No - SURGICAL HISTORY Hx Surgeries: No - ANESTHESIA Hx Anesthesia: No Meds Allergies/Adverse Reactions: Allergies Allergy/AdvReac Type Severity Reaction Status Date / Time No Known Allergies Allergy Verified 06/10/18 15:21 Physical Exam - Constitutional Appears: No Acute Distress - Head Exam Head Exam: NORMOCEPHALIC Additional comments: erythema and edema noted in R side of the face expanding from the angle of the mandible to the eyebrow vertically and from ears to mild redness expanding to th e L cheeks. Edema peak is in the R cheeks by the cheek bone. No fluctuations noted, tenderness to palpation, mildly warm. Dandruff appreciated in head, mainly in the occipital area extending to the neck - Eye Exam Eye Exam: EOMI, Normal appearance - ENT Exam ENT Exam: Mucous Membranes Moist - Respiratory Exam Respiratory Exam: Clear to Auscultation Bilateral, NORMAL BREATHING PATTERN. absent: Wheezes - Cardiovascular Exam Cardiovascular Exam: REGULAR RHYTHM, +S1, +S2 - GI/Abdominal Exam GI & Abdominal Exam: Normal Bowel Sounds, Soft. absent: Distended, Tenderness - Extremities Exam Extremities exam: Positive for: normal inspection. Negative for: calf te nderness, pedal edema - Back Exam Back exam: NORMAL INSPECTION - Neurological Exam Neurological exam: Alert, CN II-XII Intact, Oriented x3 - Psychiatric Exam Psychiatric exam: Normal Mood - Skin Skin Exam: Normal Color Results - Vital Signs Recent Vital Signs: Last Vital Signs Temp 99.2 F 06/10/18 15:22 Pulse 117 H 06/10/18 15:22 Resp 18 06/10/18 15:22 BP 154/65 H 06/10/18 15:22 Pulse Ox 99 06/10/18 15:53 - Labs Result Diagrams: 06/10/18 15:50 06/10/18 15:50 Labs: Laboratory Results - last 24 hr 06/10/18 06/10/18 06/10/18 15:50 15:50 15:55 WBC 14.5 H D RBC 4.40 Hgb 12.8 D Hct 39.9 MCV 90.7 MCH 29.1 MCHC 32.1 L RDW 14.4 Plt Count 261 D MPV 8.1 Neut % (Auto) 87.2 H Lymph % (Auto) 6.1 L [place] % (Auto) 6.3 Eos % (Auto) 0.1 Baso % (Auto) 0.3 Neut # (Auto) 12.7 H Lymph # (Auto) 0.9 L [place] # (Auto) 0.9 H Eos # (Auto) 0.0 Baso # (Auto) 0.0 pO2 VBG pH VBG pCO2 VBG HCO3 VBG Total CO2 VBG O2 Sat (Calc) VBG Base Excess VBG Potassium Glucose Lactate FiO2 Sodium 134 Potassium 4.4 Chloride 98 Carbon Dioxide 26 Anion Gap 14 BUN 15 Creatinine 0.5 L Est GFR ( Amer) > 60 Est GFR (Non-Af Amer) > 60 POC Glucose (mg/dL) 98 Random Glucose 115 H Calcium 9.4 Total Bilirubin 0.6 AST 29 ALT 39 Alkaline Phosphatase 82 Total Protein 8.0 Albumin 4.6 Globulin 3.4 Albumin/Globulin Ratio 1.4 Venous Blood Potassium 06/10/18 17:48 WBC RBC Hgb Hct MCV MCH MCHC RDW Plt Count MPV Neut % (Auto) Lymph % (Auto) [place] % (Auto) Eos % (Auto) Baso % (Auto) Neut # (Auto) Lymph # (Auto) [place] # (Auto) Eos # (Auto) Baso # (Auto) pO2 13 L VBG pH 7.35 VBG pCO2 56 VBG HCO3 25.6 VBG Total CO2 32.6 H VBG O2 Sat (Calc) 20.4 L VBG Base Excess 3.8 H VBG Potassium 3.9 Glucose 127 H Lactate 1.4 FiO2 21.0 Sodium 134.0 Potassium Chloride 97.0 L Carbon Dioxide Anion Gap BUN Creatinine Est GFR ( Amer) Est GFR (Non-Af Amer) POC Glucose (mg/dL) Random Glucose Calcium Total Bilirubin AST ALT Alkaline Phosphatase Total Protein Albumin Globulin Albumin/Globulin Ratio Venous Blood Potassium 3.9 Assessment & Plan - Assessment and Plan (Free Text) Assessment: Assessment/Plan: 83 YO Female with no sig PMHx is admitted for cellulites and sepsis. Facial Cellulites -acute likely from facial trauma, expanding since this AM per pt -CT head and CT c-spine no acute findings -CT maxillofacial: subcutaneous edema over side of the face -c/w zosyn IV -follow up AM labs -pain management as needed Sepsis -Tachycardia with leukocytosis; face likely source -remains afebrile, normal lactate -c/w IV fluids -c/w abx -Tylenol PRN fever -Bcx, Ucx pending Elevated BP -likely 2/2 to pain -cont to monitor Dermatitis of skin and scalp -Dandruff noted on scalp and back of the neck -lac hydration and ketoconazole shampoo ordered DVT proplx -Lovenox SC <Kyle Jones D - Last Filed: 06/11/18 12:04> Results - Vital Signs Recent Vital Signs: Last Vital Signs Temp 98 F 06/11/18 09:00 Pulse 99 H 06/11/18 09:00 Resp 20 06/11/18 09:00 BP 137/67 06/11/18 09:00 Pulse Ox 97 06/11/18 09:00 - Labs Result Diagrams: 06/11/18 05:30 06/10/18 15:50 Labs: Laboratory Results - last 24 hr 06/10/18 06/10/18 06/10/18 15:50 15:50 15:55 WBC 14.5 H D RBC 4.40 Hgb 12.8 D Hct 39.9 MCV 90.7 MCH 29.1 MCHC 32.1 L RDW 14.4 Plt Count 261 D MPV 8.1 Neut % (Auto) 87.2 H Lymph % (Auto) 6.1 L [place] % (Auto) 6.3 Eos % (Auto) 0.1 Baso % (Auto) 0.3 Neut # (Auto) 12.7 H Lymph # (Auto) 0.9 L [place] # (Auto) 0.9 H Eos # (Auto) 0.0 Baso # (Auto) 0.0 Neutrophils % (Manual) 84 H Band Neutrophils % 2 Lymphocytes % (Manual) 8 L Monocytes % (Manual) 6 Toxic Granulation Present Platelet Estimate Normal Hypochromasia (manual) Slight Anisocytosis (manual) Slight pO2 VBG pH VBG pCO2 VBG HCO3 VBG Total CO2 VBG O2 Sat (Calc) VBG Base Excess VBG Potassium Glucose Lactate FiO2 Sodium 134 Potassium 4.4 Chloride 98 Carbon Dioxide 26 Anion Gap 14 BUN 15 Creatinine 0.5 L Est GFR ( Amer) > 60 Est GFR (Non-Af Amer) > 60 POC Glucose (mg/dL) 98 Random Glucose 115 H Calcium 9.4 Total Bilirubin 0.6 AST 29 ALT 39 Alkaline Phosphatase 82 Total Protein 8.0 Albumin 4.6 Globulin 3.4 Albumin/Globulin Ratio 1.4 Venous Blood Potassium Urine Color Urine Clarity Urine pH Ur Specific [place] Urine Protein Urine Glucose (UA) Urine Ketones Urine Blood Urine Nitrate Urine Bilirubin Urine Urobilinogen Ur Leukocyte Esterase 06/10/18 06/10/18 06/11/18 17:48 19:11 05:30 WBC 9.0 RBC 3.61 L Hgb 11.0 L Hct 32.2 L MCV 89.1 MCH 30.4 MCHC 34.1 RDW 14.2 Plt Count 232 MPV 7.7 Neut % (Auto) 75.5 H Lymph % (Auto) 12.1 L [place] % (Auto) 12.1 H Eos % (Auto) 0.0 Baso % (Auto) 0.3 Neut # (Auto) 6.8 Lymph # (Auto) 1.1 Upton # (Auto) 1.1 H Eos # (Auto) 0.0 Baso # (Auto) 0.0 Neutrophils % (Manual) Band Neutrophils % Lymphocytes % (Manual) Monocytes % (Manual) Toxic Granulation Platelet Estimate Hypochromasia (manual) Anisocytosis (manual) pO2 13 L VBG pH 7.35 VBG pCO2 56 VBG HCO3 25.6 VBG Total CO2 32.6 H VBG O2 Sat (Calc) 20.4 L VBG Base Excess 3.8 H VBG Potassium 3.9 Glucose 127 H Lactate 1.4 FiO2 21.0 Sodium 134.0 Potassium Chloride 97.0 L Carbon Dioxide Anion Gap BUN Creatinine Est GFR ( Amer) Est GFR (Non-Af Amer) POC Glucose (mg/dL) Random Glucose Calcium Total Bilirubin AST ALT Alkaline Phosphatase Total Protein Albumin Globulin Albumin/Globulin Ratio Venous Blood Potassium 3.9 Urine Color Yellow Urine Clarity Slighty-cloudy Urine pH 6.0 Ur Specific [place] 1.019 Urine Protein Negative Urine Glucose (UA) Neg Urine Ketones 20 Urine Blood Small Urine Nitrate Negative Urine Bilirubin Negative Urine Urobilinogen 0.2-1.0 Ur Leukocyte Esterase Neg Attending/Attestation - Attestation I have personally seen and examined this patient.: Yes I have fully participated in the care of the patient.: Yes I have reviewed all pertinent clinical information: Yes Notes (Text): 06/11/18 12:04 Patient seen and examined with resident. Case discussed and agreed with assessment and plan of management.
[2018-06-10] MEDS ORDERED: Potassium Ch 20mEq in D5-1/2NS 1,000 ML IV SCH (18:45)
[2018-06-10] MEDS ORDERED: Sodium Chloride 0.9% 1,000 ML IV SCH (18:45)
[2018-06-10 19:26] LABS: URINE BILIRUBIN NEGATIVE (NEGATIVE); URINE BLOOD SMALL (NEGATIVE); URINE CLARITY SLIGHTY-CLOUDY (Clear); URINE COLOR YELLOW (YELLOW); URINE GLUCOSE (UA) NEG (Normal); URINE LEUKOCYTE ESTERASE NEG Leu/uL (Negative); URINE PROTEIN NEGATIVE (NEGATIVE); URINE UROBILINOGEN 0.2-1.0 mg/dL (0.2-1.0)
[2018-06-10 20:19] LABS: BANDS 2 % (0-2); LYMPHOCYTE 8 % (20-50); MONOCYTE 6 % (0-10); NEUTROPHIL 84 % (42-75); PLATELET ESTIMATE NORMAL (NORMAL); TOTAL CELLS COUNTED 100
[2018-06-10 20:20] LABS: ANISOCYTOSIS SLIGHT; HYPOCHROMIC SLIGHT; TOXIC GRANULATION PRESENT
[2018-06-10] MEDS ORDERED: Piperacillin/Tazobact 3.375 GM in Sodium Chloride 0.9% 100 ML IVPB SCH (22:00)
[2018-06-10] MEDS: Piperacillin/Tazobact 3.375 GM in Sodium Chloride 0.9% 100 ML IVPB SCH (23:57)
[2018-06-11] MEDS: Piperacillin/Tazobact 3.375 GM in Sodium Chloride 0.9% 100 ML IVPB SCH ×4 (04:15→21:21)
[2018-06-11 06:33] LABS: BASO % 0.3 % (0.0-2.0); LYMPH # 1.1 K/uL (1.0-4.3); LYMPH % 12.1 % (20.0-40.0); MEAN CELL VOLUME 89.1 fl (81.0-99.0); MEAN CORPUSCULAR HEMOGLOBIN 30.4 pg (27.0-31.0); MEAN CORPUSCULAR HGB CONC 34.1 g/dL (33.0-37.0); MEAN PLATELET VOLUME 7.7 fl (7.2-11.7); MONO # 1.1 K/uL (0.0-0.8); MONO % 12.1 % (0.0-10.0); NEUT # 6.8 K/uL (1.8-7.0); NEUT % 75.5 % (50.0-75.0); RBC 3.61 Mil/uL (3.80-5.20); RED CELL DISTRIBUTION WIDTH 14.2 % (11.5-14.5)
[2018-06-11 09:15] VITALS: O2SAT 97
[2018-06-11] MEDS: Enoxaparin 40 mg Syringe SC SCH (09:29)
[2018-06-11] MEDS: Ammonium Lactate 12% Cream (140 g) TOP SCH (09:30)
--- NOTE | 2018-06-11 16:22 | CP.PCM.PN ---
<Eriberto Lowe - Last Filed: 06/11/18 16:25> Subjective - Date & Time of Evaluation Date of Evaluation: 06/11/18 Time of Evaluation: 07:00 - Subjective Subjective: Pt seen and examined at bedside. No acute event overnight. Pt slept well, shes eating, pain have improved. Objective - Vital Signs/Intake and Output Vital Signs (last 24 hours): Temp Pulse Resp BP Pulse Ox 98 F 99 H 20 137/67 97 06/11/18 09:00 06/11/18 09:00 06/11/18 09:00 06/11/18 09:00 06/11/18 09:00 - Medications Medications: Current Medications Acetaminophen (Tylenol 325mg Tab) 650 mg PO Q6 PRN PRN Reason: Fever >100.4 F Acetaminophen (Tylenol 325mg Tab) 650 mg PO Q6 PRN PRN Reason: Pain, Mild (1-3) Last Admin: 06/10/18 19:05 Dose: 650 mg Enoxaparin Sodium (Lovenox) 40 mg SC DAILY ALESIA; Protocol Last Admin: 06/11/18 09:29 Dose: 40 mg Piperacillin Sod/Tazobactam (Sod 3.375 gm/ Sodium Chloride) 100 mls @ 100 mls/hr IVPB Q6 ALESIA; Protocol Last Admin: 06/11/18 09:29 Dose: 100 mls/hr Ketorolac Tromethamine (Toradol) 15 mg IVP Q6 PRN PRN Reason: Pain, moderate (4-7) Lactic Acid (Lac-Hydrin 12% Cream (140 G)) 1 ea TOP DAILY ALESIA Last Admin: 06/11/18 09:30 Dose: 1 applic - Labs Labs: 06/11/18 05:30 06/10/18 15:50 - Constitutional Appears: Well, Non-toxic, No Acute Distress - Head Exam Head Exam: ATRAUMATIC, NORMAL INSPECTION, NORMOCEPHALIC Additional comments: + for erythema and edema on RIGHT side of face, expand from angle of mandible to the eyebrow. There is some expansion to LEFT side of face. Tenderness upon palpation, warm to touch. - Eye Exam Eye Exam: EOMI, Normal appearance, PERRL Pupil Exam: NORMAL ACCOMODATION, PERRL - ENT Exam ENT Exam: Mucous Membranes Moist, Normal Exam - Neck Exam Neck Exam: Full ROM, Normal Inspection - Respiratory Exam Respiratory Exam: Clear to Ausculation Bilateral, NORMAL BREATHING PATTERN - Cardiovascular Exam Cardiovascular Exam: REGULAR RHYTHM, +S1, +S2 - GI/Abdominal Exam GI & Abdominal Exam: Soft, Normal Bowel Sounds. absent: Tenderness - Extremities Exam Extremities Exam: Full ROM, Normal Capillary Refill - Back Exam Back Exam: NORMAL INSPECTION - Neurological Exam Neurological Exam: Alert, Awake, Oriented x3 - Psychiatric Exam Psychiatric exam: Normal Affect, Normal Mood - Skin Skin Exam: Dry, Intact, Normal Color, Warm Assessment and Plan - Assessment and Plan (Free Text) Assessment: 83 YO Female with no sig PMHx is admitted for cellulites and possible sepsis Facial Cellulites - Hx of facial trauma, with tenderness, erythema and warmth -CT head and CT c-spine no acute findings -CT maxillofacial: subcutaneous edema over side of the face -Continue zosyn IV Day 2 -WBC trending down, normalized 9.0 -pain management as needed Sepsis Resolved -remains afebrile, normal lactate -Bcx, Ucx pending Elevated BP Improved, still tackycardia with 90 -cont to monitor Dermatitis of skin and scalp -Dandruff noted on scalp and back of the neck -lac hydration and ketoconazole shampoo ordered DVT proplx -Lovenox SC <Kyle Jones D - Last Filed: 06/11/18 18:20> Objective - Vital Signs/Intake and Output Vital Signs (last 24 hours): Temp Pulse Resp BP Pulse Ox 98.9 F 83 18 128/69 97 06/11/18 17:10 06/11/18 17:10 06/11/18 17:10 06/11/18 17:10 06/11/18 17:10 - Medications Medications: Current Medications Acetaminophen (Tylenol 325mg Tab) 650 mg PO Q6 PRN PRN Reason: Fever >100.4 F Acetaminophen (Tylenol 325mg Tab) 650 mg PO Q6 PRN PRN Reason: Pain, Mild (1-3) Last Admin: 06/10/18 19:05 Dose: 650 mg Enoxaparin Sodium (Lovenox) 40 mg SC DAILY ALESIA; Protocol Last Admin: 06/11/18 09:29 Dose: 40 mg Piperacillin Sod/Tazobactam (Sod 3.375 gm/ Sodium Chloride) 100 mls @ 100 mls/hr IVPB Q6 ALESIA; Protocol Last Admin: 06/11/18 16:23 Dose: 100 mls/hr Ketorolac Tromethamine (Toradol) 15 mg IVP Q6 PRN PRN Reason: Pain, moderate (4-7) Lactic Acid (Lac-Hydrin 12% Cream (140 G)) 1 ea TOP DAILY ALESIA Last Admin: 06/11/18 09:30 Dose: 1 applic - Labs Labs: 06/11/18 05:30 06/10/18 15:50 Attending/Attestation - Attestation I have personally seen and examined this patient.: Yes I have fully participated in the care of the patient.: Yes I have reviewed all pertinent clinical information, including history, physical exam and plan: Yes Notes (Text): 06/11/18 18:19 Patient seen and examined with resident. Case discussed and agreed with assessment. Patient for possible discharge in am.
[2018-06-12] MEDS: Piperacillin/Tazobact 3.375 GM in Sodium Chloride 0.9% 100 ML IVPB SCH ×2 (04:06→10:07)
[2018-06-12 09:14] VITALS: BP 143/66; PULSE 73; RESP 18; TEMP 97.9
[2018-06-12] MEDS: Enoxaparin 40 mg Syringe SC SCH (10:13)
[2018-06-12] MEDS: Ammonium Lactate 12% Cream (140 g) TOP SCH (10:13)
--- NOTE | 2018-06-12 13:56 | CP.PCM.DIS ---
<Adriano Valentin - Last Filed: 06/12/18 13:48> Provider - Provider Date of Admission: 06/10/18 18:09 Attending physician: Kyle Jones MD Time Spent in preparation of Discharge (in minutes): 15 Diagnosis - Discharge Diagnosis (1) Cellulitis Status: Acute (2) Cellulitis of face Status: Acute Hospital Course - Lab Results Lab Results: Micro Results 06/10/18 17:40 Blood-Venous Blood Culture - Preliminary NO GROWTH AFTER 24 HOURS 06/10/18 17:40 Blood-Venous Blood Culture - Preliminary NO GROWTH AFTER 24 HOURS Most Recent Lab Values WBC 9.0 K/uL (4.8-10.8) 06/11/18 05:30 RBC 3.61 Mil/uL (3.80-5.20) L 06/11/18 05:30 Hgb 11.0 g/dL (12.0-16.0) L 06/11/18 05:30 Hct 32.2 % (34.0-47.0) L 06/11/18 05:30 MCV 89.1 fl (81.0-99.0) 06/11/18 05:30 MCH 30.4 pg (27.0-31.0) 06/11/18 05:30 MCHC 34.1 g/dL (33.0-37.0) 06/11/18 05:30 RDW 14.2 % (11.5-14.5) 06/11/18 05:30 Plt Count 232 K/uL (130-400) 06/11/18 05:30 MPV 7.7 fl (7.2-11.7) 06/11/18 05:30 Neut % (Auto) 75.5 % (50.0-75.0) H 06/11/18 05:30 Lymph % (Auto) 12.1 % (20.0-40.0) L 06/11/18 05:30 Mills % (Auto) 12.1 % (0.0-10.0) H 06/11/18 05:30 Eos % (Auto) 0.0 % (0.0-4.0) 06/11/18 05:30 Baso % (Auto) 0.3 % (0.0-2.0) 06/11/18 05:30 Neut # (Auto) 6.8 K/uL (1.8-7.0) 06/11/18 05:30 Lymph # (Auto) 1.1 K/uL (1.0-4.3) 06/11/18 05:30 Mills # (Auto) 1.1 K/uL (0.0-0.8) H 06/11/18 05:30 Eos # (Auto) 0.0 K/uL (0.0-0.7) 06/11/18 05:30 Baso # (Auto) 0.0 K/uL (0.0-0.2) 06/11/18 05:30 Neutrophils % (Manual) 84 % (42-75) H 06/10/18 15:50 Band Neutrophils % 2 % (0-2) 06/10/18 15:50 Lymphocytes % (Manual) 8 % (20-50) L 06/10/18 15:50 Monocytes % (Manual) 6 % (0-10) 06/10/18 15:50 Toxic Granulation Present 06/10/18 15:50 Platelet Estimate Normal (NORMAL) 06/10/18 15:50 Hypochromasia (manual) Slight 06/10/18 15:50 Anisocytosis (manual) Slight 06/10/18 15:50 pO2 13 mm/Hg (30-55) L 06/10/18 17:48 VBG pH 7.35 (7.32-7.43) 06/10/18 17:48 VBG pCO2 56 mmHg (40-60) 06/10/18 17:48 VBG HCO3 25.6 mmol/L 06/10/18 17:48 VBG Total CO2 32.6 mmol/L (22-28) H 06/10/18 17:48 VBG O2 Sat (Calc) 20.4 % (40-65) L 06/10/18 17:48 VBG Base Excess 3.8 mmol/L (0.0-2.0) H 06/10/18 17:48 VBG Potassium 3.9 mmol/L (3.6-5.2) 06/10/18 17:48 Sodium 134.0 mmol/L (132-148) 06/10/18 17:48 Chloride 97.0 mmol/L (98-107) L 06/10/18 17:48 Glucose 127 mg/dL (65-105) H 06/10/18 17:48 Lactate 1.4 mmol/L (0.7-2.1) 06/10/18 17:48 FiO2 21.0 % 06/10/18 17:48 Sodium 134 mmol/l (132-148) 06/10/18 15:50 Potassium 4.4 MMOL/L (3.6-5.0) 06/10/18 15:50 Chloride 98 mmol/L (98-107) 06/10/18 15:50 Carbon Dioxide 26 mmol/L (22-30) 06/10/18 15:50 Anion Gap 14 (10-20) 06/10/18 15:50 BUN 15 mg/dl (7-17) 06/10/18 15:50 Creatinine 0.5 mg/dl (0.7-1.2) L 06/10/18 15:50 Est GFR ( Amer) > 60 06/10/18 15:50 Est GFR (Non-Af Amer) > 60 06/10/18 15:50 POC Glucose (mg/dL) 98 mg/dL (65-110) 06/10/18 15:55 Random Glucose 115 mg/dL (65-105) H 06/10/18 15:50 Calcium 9.4 mg/dL (8.4-10.2) 06/10/18 15:50 Total Bilirubin 0.6 mg/dl (0.2-1.3) 06/10/18 15:50 AST 29 U/L (14-36) 06/10/18 15:50 ALT 39 U/L (9-52) 06/10/18 15:50 Alkaline Phosphatase 82 U/L (38-126) 06/10/18 15:50 Total Protein 8.0 G/DL (6.3-8.2) 06/10/18 15:50 Albumin 4.6 g/dL (3.5-5.0) 06/10/18 15:50 Globulin 3.4 gm/dL (2.2-3.9) 06/10/18 15:50 Albumin/Globulin Ratio 1.4 (1.0-2.1) 06/10/18 15:50 Venous Blood Potassium 3.9 mmol/L (3.6-5.2) 11/22/18 17:48 Urine Color Yellow (YELLOW) 06/10/18 19:11 Urine Clarity Slighty-cloudy (Clear) 06/10/18 19:11 Urine pH 6.0 (5.0-8.0) 06/10/18 19:11 Ur Specific [place] 1.019 (1.003-1.030) 06/10/18 19:11 Urine Protein Negative mg/dL (NEGATIVE) 06/10/18 19:11 Urine Glucose (UA) Neg mg/dL (Normal) 06/10/18 19:11 Urine Ketones 20 mg/dL (NEGATIVE) 06/10/18 19:11 Urine Blood Small (NEGATIVE) 06/10/18 19:11 Urine Nitrate Negative (NEGATIVE) 06/10/18 19:11 Urine Bilirubin Negative (NEGATIVE) 06/10/18 19:11 Urine Urobilinogen 0.2-1.0 mg/dL (0.2-1.0) 06/10/18 19:11 Ur Leukocyte Esterase Neg Hali/uL (Negative) 06/10/18 19:11 - Hospital Course Hospital Course: 83 y/o woman w/ no significan PMHx is admitted for cellulitis of the right side of face expanding to the right and sepsis. In ER patient was found with tachycardia, leukocytosis, but afebrile, lactic acid normal. Code sepsis was called. Pt received IV fluid, IV zosyn and blood culture and urine culture were withdrawn. Patient was stabilized and sent to med/surg for further management. In the floor patient was continued on Zosyn, acetaminophen for fever, and blood pressure was monitored. Patient CBC normalized, Blood pressure normalized, no tachycardia, and afebrile, sepsis have resolved and patient status have improved. Patient seen and examined at bedside. No acute event overnight, she slept well and pain have decreased. Patient is ready to go home. Patient chart have been reviewed, physical exam no new finding, cellulitis improving, patient is ready to be discharged. Medical team have cleared patient. Follow up with PCP in 1-2 days. patient will be discharged with ABx Augmentin 875-125 mg PO Q12h for 7 days -CT head and CT c-spine no acute findings -CT maxillofacial: subcutaneous edema over side of the face Discharge Exam - Head Exam Head Exam: ATRAUMATIC, NORMAL INSPECTION, NORMOCEPHALIC - Eye Exam Eye Exam: Normal appearance - ENT Exam ENT Exam: Mucous Membranes Moist - Neck Exam Neck exam: Full Rom - Respiratory Exam Respiratory Exam: Clear to PA & Lateral, NORMAL BREATHING PATTERN. absent: Decreased Breath Sounds, Rales, Rhonchi, Wheezes, Respiratory Distress - Cardiovascular Exam Cardiovascular Exam: REGULAR RHYTHM, RRR - GI/Abdominal Exam GI & Abdominal Exam: Normal Bowel Sounds, Soft. absent: Distended, Tenderness - Extremities Exam Extremities exam: normal inspection - Neurological Exam Neurological exam: Alert, Normal Gait, Oriented x3 - Psychiatric Exam Psychiatric exam: Normal Affect, Normal Mood - Skin Skin Exam: Dry, Normal Color, Warm Additional comments: cellulitis on right face has regressed significantly, minimal tenderness Discharge Plan - Discharge Medications Prescriptions: Amoxicillin/Clavulanate [Augmentin 875 MG-125 MG] 1 tab PO BID #14 tab - Follow Up Plan Condition: GOOD Disposition: HOME/ ROUTINE <Kyle Jones - Last Filed: 06/12/18 14:21> Provider - Provider Date of Admission: 06/10/18 18:09 Attending physician: Kyle Jones MD Hospital Course - Lab Results Lab Results: Micro Results 06/10/18 17:40 Blood-Venous Blood Culture - Preliminary NO GROWTH AFTER 24 HOURS 06/10/18 17:40 Blood-Venous Blood Culture - Preliminary NO GROWTH AFTER 24 HOURS Most Recent Lab Values WBC 9.0 K/uL (4.8-10.8) 06/11/18 05:30 RBC 3.61 Mil/uL (3.80-5.20) L 06/11/18 05:30 Hgb 11.0 g/dL (12.0-16.0) L 06/11/18 05:30 Hct 32.2 % (34.0-47.0) L 06/11/18 05:30 MCV 89.1 fl (81.0-99.0) 06/11/18 05:30 MCH 30.4 pg (27.0-31.0) 06/11/18 05:30 MCHC 34.1 g/dL (33.0-37.0) 06/11/18 05:30 RDW 14.2 % (11.5-14.5) 06/11/18 05:30 Plt Count 232 K/uL (130-400) 06/11/18 05:30 MPV 7.7 fl (7.2-11.7) 06/11/18 05:30 Neut % (Auto) 75.5 % (50.0-75.0) H 06/11/18 05:30 Lymph % (Auto) 12.1 % (20.0-40.0) L 06/11/18 05:30 Mills % (Auto) 12.1 % (0.0-10.0) H 06/11/18 05:30 Eos % (Auto) 0.0 % (0.0-4.0) 06/11/18 05:30 Baso % (Auto) 0.3 % (0.0-2.0) 06/11/18 05:30 Neut # (Auto) 6.8 K/uL (1.8-7.0) 06/11/18 05:30 Lymph # (Auto) 1.1 K/uL (1.0-4.3) 06/11/18 05:30 Mills # (Auto) 1.1 K/uL (0.0-0.8) H 06/11/18 05:30 Eos # (Auto) 0.0 K/uL (0.0-0.7) 06/11/18 05:30 Baso # (Auto) 0.0 K/uL (0.0-0.2) 06/11/18 05:30 Neutrophils % (Manual) 84 % (42-75) H 06/10/18 15:50 Band Neutrophils % 2 % (0-2) 06/10/18 15:50 Lymphocytes % (Manual) 8 % (20-50) L 06/10/18 15:50 Monocytes % (Manual) 6 % (0-10) 06/10/18 15:50 Toxic Granulation Present 06/10/18 15:50 Platelet Estimate Normal (NORMAL) 06/10/18 15:50 Hypochromasia (manual) Slight 06/10/18 15:50 Anisocytosis (manual) Slight 06/10/18 15:50 pO2 13 mm/Hg (30-55) L 06/10/18 17:48 VBG pH 7.35 (7.32-7.43) 06/10/18 17:48 VBG pCO2 56 mmHg (40-60) 06/10/18 17:48 VBG HCO3 25.6 mmol/L 06/10/18 17:48 VBG Total CO2 32.6 mmol/L (22-28) H 06/10/18 17:48 VBG O2 Sat (Calc) 20.4 % (40-65) L 06/10/18 17:48 VBG Base Excess 3.8 mmol/L (0.0-2.0) H 06/10/18 17:48 VBG Potassium 3.9 mmol/L (3.6-5.2) 06/10/18 17:48 Sodium 134.0 mmol/L (132-148) 06/10/18 17:48 Chloride 97.0 mmol/L (98-107) L 06/10/18 17:48 Glucose 127 mg/dL (65-105) H 06/10/18 17:48 Lactate 1.4 mmol/L (0.7-2.1) 06/10/18 17:48 FiO2 21.0 % 06/10/18 17:48 Sodium 134 mmol/l (132-148) 06/10/18 15:50 Potassium 4.4 MMOL/L (3.6-5.0) 06/10/18 15:50 Chloride 98 mmol/L (98-107) 06/10/18 15:50 Carbon Dioxide 26 mmol/L (22-30) 06/10/18 15:50 Anion Gap 14 (10-20) 06/10/18 15:50 BUN 15 mg/dl (7-17) 06/10/18 15:50 Creatinine 0.5 mg/dl (0.7-1.2) L 06/10/18 15:50 Est GFR ( Amer) > 60 06/10/18 15:50 Est GFR (Non-Af Amer) > 60 06/10/18 15:50 POC Glucose (mg/dL) 98 mg/dL (65-110) 06/10/18 15:55 Random Glucose 115 mg/dL (65-105) H 06/10/18 15:50 Calcium 9.4 mg/dL (8.4-10.2) 06/10/18 15:50 Total Bilirubin 0.6 mg/dl (0.2-1.3) 06/10/18 15:50 AST 29 U/L (14-36) 06/10/18 15:50 ALT 39 U/L (9-52) 06/10/18 15:50 Alkaline Phosphatase 82 U/L (38-126) 06/10/18 15:50 Total Protein 8.0 G/DL (6.3-8.2) 06/10/18 15:50 Albumin 4.6 g/dL (3.5-5.0) 06/10/18 15:50 Globulin 3.4 gm/dL (2.2-3.9) 06/10/18 15:50 Albumin/Globulin Ratio 1.4 (1.0-2.1) 06/10/18 15:50 Venous Blood Potassium 3.9 mmol/L (3.6-5.2) 06/10/18 17:48 Urine Color Yellow (YELLOW) 06/10/18 19:11 Urine Clarity Slighty-cloudy (Clear) 06/10/18 19:11 Urine pH 6.0 (5.0-8.0) 06/10/18 19:11 Ur Specific [place] 1.019 (1.003-1.030) 06/10/18 19:11 Urine Protein Negative mg/dL (NEGATIVE) 06/10/18 19:11 Urine Glucose (UA) Neg mg/dL (Normal) 06/10/18 19:11 Urine Ketones 20 mg/dL (NEGATIVE) 06/10/18 19:11 Urine Blood Small (NEGATIVE) 06/10/18 19:11 Urine Nitrate Negative (NEGATIVE) 06/10/18 19:11 Urine Bilirubin Negative (NEGATIVE) 06/10/18 19:11 Urine Urobilinogen 0.2-1.0 mg/dL (0.2-1.0) 06/10/18 19:11 Ur Leukocyte Esterase Neg Hali/uL (Negative) 06/10/18 19:11 Attending/Attestation - Attestation I have personally seen and examined this patient.: Yes I have fully participated in the care of the patient.: Yes I have reviewed all pertinent clinical information, including history, physical exam and plan: Yes Notes (Text): 06/12/18 14:20 Patient seen and examined with resident. Case discussed and agreed with assessment. Patient discharged in stable condition.
== END 2018-06-12 16:51 | disposition home or self-care (01) ==
LOC: H.ER 15:19 → H.ERHOLD 18:09 → H.MEDSURG1 20:40
DX: A41.9 Sepsis, unspecified organism (principal); L03.211 Cellulitis of face; L30.9 Dermatitis, unspecified; L21.0 Seborrhea capitis; Z59.0 Homelessness
CPT/HCPCS: 36415; 70450; 70486; 72125; 80053; 81003; 82803; 82948; 85025; 87040; 87086; 99285; G0378; J1650; J2543; J7030